=== PATIENT | female | born 1960 | race American Indian/Alaskan Native ===

== ENCOUNTER 2018-03-27 08:08 | Outpatient (CLI) | payer BC ==
--- NOTE | 2018-03-27 13:21 | Mammography Report ---
BILATERAL DIGITAL SCREENING MAMMOGRAM with CAD: 03/27/18 08:08:00 CLINICAL: Routine screening. COMPARISON:None available. FINDINGS: There are bilateral scattered fibroglandular densities. Bilateral parenchymal asymmetries require additional imaging.No architectural distortion or suspicious calcifications. IMPRESSION: Bilateral asymmetries requiring further workup. BI-RADS CATEGORY: 0 -- Additional Imaging Evaluation Required RECOMMENDATION: Recall for bilateral mediolateral and spot compression views and bilateral breast ultrasound if needed. ACR BI-RADS MAMMOGRAPHIC CODES: 0 = Needs additional imaging evaluation; 1 = Negative; 2 = Benign; 3 = Probably benign; 4 = Suspicious; 5 = Malignant; 6 = Known biopsy-proven malignancy COMMENT: 1. Dense breast tissue, i.e., adenosis, fibrocystic changes, etc., may obscure an underlying neoplasm. 2. Approximately 10% of cancers are not detected with mammography. 3. A negative mammography report should not delay biopsy if a clinically suspicious mass is present. COMMENT: Patient follow-up letters are generated via our [employer] application.
== END 2018-03-27 08:09 | disposition home or self-care (01) ==
LOC: MAMMO 08:08
PROVIDERS: ATTEND Family Medicine
DX: Z12.31 Encounter for screening mammogram for malignant neoplasm of breast (principal)
CPT/HCPCS: 77067

== ENCOUNTER 2018-04-16 07:49 | Outpatient (CLI) | payer BC ==
--- NOTE | 2018-04-16 09:33 | Mammography Report ---
BILATERAL DIGITAL DIAGNOSTIC MAMMOGRAM : 04/16/18 07:49:00 CLINICAL: Recalled for bilateral asymmetries COMPARISON:03/27/18 screening FINDINGS: Additional bilateral mammographic views were performed and are negative. IMPRESSION: No mammographic evidence of malignancy. BI-RADS CATEGORY: 1 -- Negative RECOMMENDATION: Routine mammographic screening in one year. ACR BI-RADS MAMMOGRAPHIC CODES: 0 = Needs additional imaging evaluation; 1 = Negative; 2 = Benign; 3 = Probably benign; 4 = Suspicious; 5 = Malignant; 6 = Known biopsy-proven malignancy COMMENT: 1. Dense breast tissue, i.e., adenosis, fibrocystic changes, etc., may obscure an underlying neoplasm. 2. Approximately 10% of cancers are not detected with mammography. 3. A negative mammography report should not delay biopsy if a clinically suspicious mass is present. COMMENT: Patient follow-up letters are generated via our [employer] application.
== END 2018-04-16 07:50 | disposition home or self-care (01) ==
LOC: MAMMO 07:49
DX: R92.8 Other abnormal and inconclusive findings on diagnostic imaging of breast (principal)
CPT/HCPCS: 77066

== ENCOUNTER 2019-01-12 08:23 | Outpatient (CLI) | payer BC ==
[2019-01-12 08:48] LABS: Hematocrit 39.5 % (30.3-42.9); Hemoglobin 12.8 gm/dl (10.1-14.3); Mean Corpuscular HGB Conc 33 % (30-34); Mean Corpuscular Volume 85 fl (79-97); Platelet Count 134 K/mm3 (140-440); Red Blood Count 4.64 M/mm3 (3.65-5.03); Red Cell Distribution Width 14.2 % (13.2-15.2)
[2019-01-12 09:05] LABS: Alanine Aminotransferase 17 units/L (7-56); Albumin 4.2 g/dL (3.9-5); BUN/Creatinine Ratio 26; Blood Urea Nitrogen 18 mg/dL (7-17); Calcium 8.9 mg/dL (8.4-10.2); Chol/HDL Ratio 2.36 %; HDL Cholesterol 66 mg/dL (40-59); Hemolysis Index 3; LDL Cholesterol,Direct 90 mg/dL (50-130)
[2019-01-12 10:08] LABS: Anisocytosis 1+; Basophils % (Manual) 0 % (0.0-1.8); Platelet Estimate Consistent w Auto; Total Cells Counted 100
[2019-01-15 15:02] LABS: Vitamin D, 25-OH, D2 <4 ng/mL
== END 2019-01-12 08:24 | disposition home or self-care (01) ==
LOC: LAB 08:23
PROVIDERS: ATTEND Family Medicine
DX: Z00.00 Encounter for general adult medical examination without abnormal findings (principal)
CPT/HCPCS: 36415; 80053; 80061; 82306; 84439; 84481; 85007; 85025

== ENCOUNTER 2019-03-30 08:01 | Outpatient (CLI) | payer BC ==
--- NOTE | 2019-03-30 08:58 | Mammography Report ---
DIGITAL SCREENING MAMMOGRAM WITH CAD, 03/30/2019 INDICATION: Routine screening mammography. TECHNIQUE: Digital bilateral 2D mammography was obtained in the craniocaudal and mediolateral obliq ue projections. This examination was interpreted with the benefit of Computer-Aided Detection analysi s. COMPARISON: 03/27/2018, 11/23/2016 FINDINGS: Breast Density: There are scattered areas of fibroglandular density. There is no evidence of dominant mass, suspicious calcifications or architectural distortion in eithe r breast. No interval change. IMPRESSION: No evidence of malignancy. BI-RADS Category 1: Negative. No mammographic evidence of malignancy. Recommend routine screening m ammography in one year. A "normal" or negative report should not discourage follow up or biopsy of a clinically significant f inding. A written summary of these findings will be mailed to the patient. The patient will be entered into a mammography reporting system which will generate a reminder letter for the patient's next appointmen t at the appropriate interval. The [employer] recommends yearly mammograms starting at age 40 and continuing as l jerzy as a woman is in good health. Breast MRI is recommended for women with an approximate 20-25% or greater lifetime risk of breast cancer, including women with a strong family history of breast or ova fazal cancer or who have been treated for Hodgkin's disease. Signer Name: Maryuri Snow MD Signed: 03/30/2019 8:54 AM Workstation Name: [id number]
== END 2019-03-30 08:02 | disposition home or self-care (01) ==
LOC: MAMMO 08:01
PROVIDERS: ATTEND Family Medicine
DX: Z12.31 Encounter for screening mammogram for malignant neoplasm of breast (principal); I34.0 Nonrheumatic mitral (valve) insufficiency; I51.7 Cardiomegaly
CPT/HCPCS: 77067; 93306

== ENCOUNTER 2020-06-01 10:09 | Outpatient (CLI) | payer BC ==
--- NOTE | 2020-06-01 10:48 | Mammography Report ---
DIGITAL LEFT DIAGNOSTIC MAMMOGRAM WITH CAD, WITHOUT TOMOSYNTHESIS 06/01/2020 INDICATION: Abnormal screening mammogram TECHNIQUE: Digital left mammographic imaging was performed. Spot compression views were obtained. This examination was interpreted with the benefit of Computer-aided Detection analysis. COMPARISON: Mammography from 05/15/2020 through 03/27/2018 Breast Density: The breasts are heterogeneously dense, which may obscure small masses. FINDINGS: The density in question seen only on the mediolateral view posteriorly appears to represent overlapping prior densities as viewed on additional projections today. IMPRESSION: Resolution of concern Follow up recommendation: Routine BI-RADS Category 1: Negative. A "normal" or negative report should not discourage follow up or biopsy of a clinically significant f inding. A written summary of these findings will be mailed to the patient. The patient will be entered into a mammography reporting system which will generate a reminder letter for the patient's next appointmen t at the appropriate interval. According to the [employer], yearly mammograms are recommended starting at age 40 and continuing as long as a woman is in good health. Breast MRI is recommended for women with an yola roximately 20-25% or greater lifetime risk of breast cancer, including women with a strong family his tory of breast or ovarian cancer and women who have been treated for Hodgkin's disease. Signer Name: Rick Holt MD Signed: 06/01/2020 10:43 AM Workstation Name: [id number]
== END 2020-06-01 10:10 | disposition home or self-care (01) ==
LOC: MAMMO 10:09
PROVIDERS: ATTEND Internal Medicine
DX: R92.8 Other abnormal and inconclusive findings on diagnostic imaging of breast (principal)

== ENCOUNTER 2020-06-08 12:29 | Outpatient (CLI) | payer BC ==
[2020-06-08 14:50] LABS: Basophils % (Auto) 0.7 % (0.0-1.8); Eosinophils # (Auto) 0.1 K/mm3 (0.0-0.4); Eosinophils % (Auto) 1.6 % (0.0-4.3); Hematocrit 41.8 % (30.3-42.9); Hemoglobin 13.5 gm/dl (10.1-14.3); Lymphocytes # (Auto) 2.6 K/mm3 (1.2-5.4); Lymphocytes % (Auto) 53.6 % (13.4-35.0); Mean Corpuscular HGB Conc 32 % (30-34); Mean Corpuscular Volume 86 fl (79-97); Monocytes # (Auto) 0.4 K/mm3 (0.0-0.8); Monocytes % (Auto) 7.2 % (0.0-7.3); Platelet Count 141 K/mm3 (140-440); Red Blood Count 4.88 M/mm3 (3.65-5.03)
[2020-06-08 15:13] LABS: Alanine Aminotransferase 14 units/L (7-56); Albumin 4.4 g/dL (3.9-5); Blood Urea Nitrogen 15 mg/dL (7-17); Calcium 9.8 mg/dL (8.4-10.2); Chol/HDL Ratio 2.21 %; HDL Cholesterol 76 mg/dL (40-59); Hemolysis Index 3; LDL Cholesterol,Direct 96 mg/dL (50-130)
[2020-06-08 15:20] LABS: BUN/Creatinine Ratio 21
== END 2020-06-08 12:30 | disposition home or self-care (01) ==
LOC: LAB 12:29
PROVIDERS: ATTEND Obstetrics & Gynecology
DX: Z01.419 Encounter for gynecological examination (general) (routine) without abnormal findings (principal)
CPT/HCPCS: 36415; 80053; 80061; 82306; 82607; 82670; 83001; 84402; 84436; 84443; 84481; 85025; 86800

== ENCOUNTER 2020-06-16 08:45 | Outpatient (CLI) | payer BC ==
--- NOTE | 2020-06-16 09:43 | Ultrasound Report ---
CLINICAL DATA: uterine fibroids TECHNICAL DATA: Ultrasound, pelvic (nonobstetric), real-time with image documentation; transabdominal and transvagina l imaging with Doppler was performed. FINDINGS: The uterus is of normal size and echogenicity. Several uterine fibroids are present largest located f undally measuring 5.9 cm in greatest diameter and 2 smaller 1's involving the anterior and posterior aspect of the ureters measuring 2.5 cm in diameter and 3.0 cm in diameter. Endometrial thickness is w ithin normal limits. The right and left ovaries are of symmetric size and echogenicity. There are no ovarian or adnexal ma sses. Doppler imaging demonstrates normal vascular flow to both ovaries. There is no significant quantity of free fluid dependently within the pelvis. IMPRESSION: 3 well-defined uterine fibroids as noted. GUIDELINES FOR IMAGING OF OVARIAN--ADNEXAL CYST: WOMEN OF REPRODUCTIVE AGE: 1. Cysts <=3 cm: Normal physiologic findings; at the discretion of the interpreting physician whether or not to describe them in the imaging report; do not need follow-up. 2. Cysts >3 and <=5 cm: Should be described in the imaging report with a statement that they are almo st certainly benign; do not need follow-up. 3. Cysts >5 and <=7 cm: Should be described in the imaging report with a statement that they are almo st certainly benign; yearly follow-up with US recommended. 4. Cysts >7 cm: Since these may be difficult to assess completely with US, further imaging with magne tic resonance (MR) or surgical evaluation should be considered. POSTMENOPAUSAL WOMEN: 1. Cysts <=1 cm: Are clinically inconsequential; at the discretion of the interpreting physician whet her or not to describe them in the imaging report; do not need follow-up. 2. Cysts >1 and <=7 cm: Should be described in the imaging report with statement that they are almost certainly benign; yearly follow-up, at least initially, with US recommended. Some practices may opt to increase the lower size threshold for follow-up from 1 cm to as high as 3 cm. One may opt to john nue follow-up annually or to decrease the frequency of follow-up once stability or decrease in size h as been confirmed. Cysts in the larger end of this range should still generally be followed on a regu lar basis. 3. Cysts >7 cm: Since these may be difficult to assess completely with US, further imaging with MR or surgical evaluation should be considered. Signer Name: Candido Yu MD Signed: 06/16/2020 9:39 AM Workstation Name: [id number]
== END 2020-06-16 08:46 | disposition home or self-care (01) ==
LOC: US 08:45
PROVIDERS: ATTEND Obstetrics & Gynecology
DX: D25.9 Leiomyoma of uterus, unspecified (principal); R53.83 Other fatigue; N95.1 Menopausal and female climacteric states; R68.82 Decreased libido
CPT/HCPCS: 36415; 76856

== ENCOUNTER 2021-02-01 07:54 | Outpatient (CLI) | payer BC ==
--- NOTE | 2021-02-01 09:19 | XRay Report ---
CHEST 2 VIEWS INDICATION: HISTORY OF POSITIVE PPD. COMPARISON: FINDINGS: Support devices: None. Heart: Within normal limits. Lungs: No acute air space or interstitial disease. Pleura: No significant pleural effusion. No pneumothorax. Additional findings: None. IMPRESSION: 1. No acute findings. Signer Name: Candido Yu MD Signed: 02/01/2021 9:15 AM Workstation Name: [id number]
== END 2021-02-01 07:55 | disposition home or self-care (01) ==
LOC: XRAY 07:54
PROVIDERS: ATTEND Internal Medicine
DX: Z92.89 Personal history of other medical treatment (principal)
CPT/HCPCS: 71046

== ENCOUNTER 2021-09-06 09:54 | Outpatient (CLI) | payer BC ==
--- NOTE | 2021-09-06 11:22 | Mammography Report ---
DEXA BONE DENSITY SCAN INDICATION / CLINICAL INFORMATION: SCREENING. 61 years Female COMPARISON: None available. LUMBAR SPINE, L1-L4: - Bone mineral density (BMD) = 0.748 g/cm2. - T-score = -2.7 - Z-score = -2.0 Change (%) since most recent prior (if available): None available. LEFT HIP, NECK : - Bone mineral density (BMD) = 0.670 g/cm2. - T-score = -1.6 - Z-score = -0.9 Change (%) since most recent prior (if available): None available. IMPRESSION: 1. WHO Classification: Osteoporosis. Fracture Risk: High. Note: 10-Year Fracture Risk (FRAX) not reported. This DEXA unit lacks FRAX functionality. BMD Reporting Guidelines (ISCD, 2015) BMD Reporting in Postmenopausal Women and in Men Age 50 and Older - T-scores are preferred. - The WHO densitometric classification is applicable. BMD Reporting in Females Prior to Menopause and in Males Younger Than Age 50 - Z-scores, not T-scores, are preferred. This is particularly important in children. - A Z-score of -2.0 or lower is defined as below the expected range for age, and a Z-score above -2.0 is within the expected range for age. - Osteoporosis cannot be diagnosed in men under age 50 on the basis of BMD alone. - The WHO diagnostic criteria may be applied to women in the menopausal transition. http://www.iscd.org/official-positions/0142-kfyt-aiydmsbh-positions-adult/ Signer Name: Bola Guzman MD Signed: 09/06/2021 11:15 AM Workstation Name: [id number]
--- NOTE | 2021-09-06 16:37 | Mammography Report ---
DIGITAL SCREENING MAMMOGRAM WITH CAD, 09/06/2021 CLINICAL INFORMATION / INDICATION: Routine screening mammography. SCREENING TECHNIQUE: Digital bilateral 2D mammography was obtained in the craniocaudal and mediolateral obliqu e projections. This examination was interpreted with the benefit of Computer-Aided Detection analysis . COMPARISON: 11/23/2016 through 05/15/2020. FINDINGS: Breast Density: There are scattered areas of fibroglandular density. No dominant mass, suspicious calcifications, or architectural distortion in either breast. Asymmetric breast tissue in the right lateral breast is stable. IMPRESSION: No mammographic evidence of malignancy. Follow up recommendation: Routine yearly BI-RADS Category 2: BENIGN. A "normal" or negative report should not discourage follow up or biopsy of a clinically significant f inding. A written summary of these findings will be mailed to the patient. The patient will be entered into a mammography reporting system which will generate a reminder letter for the patient's next appointmen t at the appropriate interval. The [employer] recommends yearly mammograms starting at age 40 and continuing as l jerzy as a woman is in good health. Breast MRI is recommended for women with an approximate 20-25% or greater lifetime risk of breast cancer, including women with a strong family history of breast or ova fazal cancer or who have been treated for Hodgkin's disease. Signer Name: Fabian Su MD Signed: 09/06/2021 4:33 PM Workstation Name: [id number]
== END 2021-09-06 09:55 | disposition home or self-care (01) ==
LOC: MAMMO 09:54
PROVIDERS: ATTEND Internal Medicine
DX: Z12.31 Encounter for screening mammogram for malignant neoplasm of breast (principal); M81.0 Age-related osteoporosis without current pathological fracture
CPT/HCPCS: 77067; 77080